=== PATIENT | female | born 1970 | race American Indian/Alaskan Native ===

== ENCOUNTER 2017-05-28 09:24 | Emergency (ER) | payer MEDICARE ==
[2017-05-28 09:24] VITALS: BMI 30.9
[2017-05-28 10:04] VITALS: BP 117/77; PULSE 82; RESP 18; TEMP 97; O2SAT 100
--- NOTE | 2017-05-28 10:26 | ED PDOC ---
HPI: Chest Pain Time Seen by Provider: 05/28/17 09:58 Chief Complaint (Nursing): Chest Pain Chief Complaint (Provider): mid sternal pain History Per: Patient History/Exam Limitations: no limitations Onset/Duration Of Symptoms: Days (x 3) Exacerbating Factors: Movement, Deep Breathing Additional Complaint(s): Kinga Haas is a 47 year old female, with a previou smedical history of arthritis, who presents to the ED with complaints of mid-sternal chest pain which radiates to her back constantly ongoing for 3 days. Patient reports pain is worse with deep breaths and movement. She denies any fever, coughing, travel or recent surgeries. She reports intermittent episodes of left leg swelling which has been ongoing for a while. PMD: none provided Past Medical History Reviewed: Historical Data, Nursing Documentation, Vital Signs Vital Signs: Last Vital Signs Temp 97 F L 05/28/17 09:52 Pulse 82 05/28/17 09:52 Resp 18 05/28/17 09:52 BP 117/77 05/28/17 09:52 Pulse Ox 100 05/31/17 12:34 - Medical History PMH: Anemia, Arthritis Denies: Depression, Chronic Kidney Disease - Family History Family History: States: Unknown Family Hx - Social History Current smoker - smoking cessation education provided: No Alcohol: Social - Home Medications Home Medications: Ambulatory Orders Medication Instructions Recorded Linaclotide [Linzess] 290 mcg PO BID 01/13/15 Gabapentin [Neurontin] 100 mg PO TID 02/18/15 Iron [Slow Fe] 3 tab PO QPM 02/18/15 Acetaminophen/Butalbital/Caf 1 tab PO Q6 PRN #0 tab 02/22/15 [Fioricet] Cholecalciferol [Vitamin D] 1,000 iu PO DAILY 04/21/15 Cyanocobalamin [Vitamin B12 1000 1 tab PO DAILY 04/21/15 mcg Tab] Famotidine [Pepcid] 20 mg PO DAILY 04/21/15 Levocetirizine Dihydrochlori 5 mg PO QPM 04/21/15 [Xyzal] Sennosides [Senna] 2 tab PO HS 04/21/15 Fluocinonide 0.05% Cream [Lidex 1 % TOP QID 04/23/15 0.05% Cream] Naproxen [Naprosyn Tab] 250 mg PO BID PRN #20 tab 05/28/17 Omeprazole 20 mg PO DAILY #10 capsule. 05/28/17 - Allergies Allergies/Adverse Reactions: Allergies Allergy/AdvReac Type Severity Reaction Status Date / Time penicillin G Allergy RASH Verified 09/11/16 07:07 CHINO Risk Score for UA/NSTEMI - CHINO Risk Score Age > 64: NO 3 or more CAD Risk Factors: NO Known CAD (Stenosis greater than 50%): NO Aspirin use in past 7 days: NO Severe Angina: NO EKG ST changes greater than 0.5mm: NO Positive Cardiac Marker: NO CHINO Score: 0 Risk %: 5% Wells Criteria for PE - Wells Criteria for Pulmonary Embolism Clinical Signs and Symptoms of DVT: No P.E is #1 Diagnosis, or Equally Likely: No Heart Rate >100: No Immobilization at least 3 days;Surgery previous 4 weeks: No Previous, objectively diagnosed PE or DVT: No Hemoptysis: No Malignancy w/treatment within 6 months, or palliative: No Total Score: 0 Review of Systems ROS Statement: Except As Marked, All Systems Reviewed And Found Negative Constitutional: Negative for: Fever, Chills Cardiovascular: Positive for: Chest Pain Respiratory: Negative for: Cough, Shortness of Breath Musculoskeletal: Positive for: Back Pain Physical Exam - Reviewed Nursing Documentation Reviewed: Yes Vital Signs Reviewed: Yes - Physical Exam Appears: Positive for: Well, Non-toxic, No Acute Distress Head Exam: Positive for: ATRAUMATIC, NORMAL INSPECTION, NORMOCEPHALIC Skin: Positive for: Normal Color, Warm, DRY Eye Exam: Positive for: EOMI, Normal appearance, PERRL ENT: Positive for: Normal ENT Inspection Neck: Positive for: Normal, Painless ROM Cardiovascular/Chest: Positive for: Regular Rate, Rhythm Respiratory: Positive for: CNT, Normal Breath Sounds Gastrointestinal/Abdominal: Positive for: Normal Exam, Bowel Sounds, Soft Back: Positive for: Normal Inspection Extremity: Positive for: Normal ROM Neurologic/Psych: Positive for: Alert, Oriented - Laboratory Results Result Diagrams: 05/28/17 10:33 05/28/17 10:33 - ECG O2 Sat by Pulse Oximetry: 100 (RA) Pulse Ox Interpretation: Normal - Physician Consult Information Time Consulting Physican Contacted: 15:55 Physician Contacted: Nancy Corrales Outcome Of Conversation: Case discussed, agrees with discharge home, recommends Rx Naprosyn 250 mg and Omeprazole. Medical Decision Making Medical Decision Making: Initial Plan: * EKG * labs * Troponin I * urine * urine dipstick * D-dimer * PTT * PT * CXR * US duplex lower extremity * reevaluation Scribe Attestation: Documented by Susie Santamaria, acting as a scribe for Susie Bravo MD. Provider Scribe Attestation: All medical record entries made by the Scribe were at my direction and personally dictated by me. I have reviewed the chart and agree that the record accurately reflects my personal performance of the history, physical exam, medical decision making, and the department course for this patient. I have also personally directed, reviewed, and agree with the discharge instructions and disposition. Disposition - Clinical Impression Clinical Impression: Atypical chest pain - Patient ED Disposition Is Patient to be Admitted: No - Disposition Referrals: Nancy Corrales MD [Family Provider] - Disposition: Routine/Home Disposition Time: 15:56 Condition: STABLE Prescriptions: Naproxen [Naprosyn Tab] 250 mg PO BID PRN #20 tab PRN Reason: Pain Omeprazole 20 mg PO DAILY #10 capsule.dr Instructions: Chest Pain (ED), Costochondritis (ED)
--- NOTE | 2017-05-28 10:38 | RAD ---
HISTORY: CP COMPARISON: Comparison chest 09/11/2016 FINDINGS: LUNGS: Poor inspiration with low lung volumes, mild crowded bronchovascular markings and mild bibasilar atelectasis PLEURA: No significant pleural effusion identified, no pneumothorax apparent. CARDIOVASCULAR: Normal. OSSEOUS STRUCTURES: No significant abnormalities. VISUALIZED UPPER ABDOMEN: Normal. OTHER FINDINGS: None. IMPRESSION: Poor inspiration with low lung volumes, mild crowded bronchovascular markings and mild bibasilar atelectasis
[2017-05-28 10:41] LABS: BASO % 0.4 % (0.0-2.0); EOS % 0.9 % (0.0-4.0); HEMOGLOBIN 12.4 g/dL (12.0-16.0); LYMPH # 1.1 K/uL (1.0-4.3); LYMPH % 21.6 % (20.0-40.0); MEAN CELL VOLUME 90.9 fl (81.0-99.0); MEAN CORPUSCULAR HEMOGLOBIN 29.9 pg (27.0-31.0); MEAN CORPUSCULAR HGB CONC 32.9 g/dL (33.0-37.0); MEAN PLATELET VOLUME 10.5 fl (7.2-11.7); MONO # 0.3 K/uL (0.0-0.8); MONO % 6.9 % (0.0-10.0); NEUT # 3.5 K/uL (1.8-7.0); NEUT % 70.2 % (50.0-75.0); NRBC % 0.1 % (0.0-0.0); RBC 4.13 Mil/uL (3.80-5.20); RED CELL DISTRIBUTION WIDTH 14.5 % (11.5-14.5)
[2017-05-28 10:57] LABS: ALB/GLOB RATIO 1.4 (1.0-2.1); ALBUMIN 4.2 g/dL (3.5-5.0); ALT/SGPT 25 U/L (9-52); AST/SGOT 23 U/L (14-36); BLOOD UREA NITROGEN 9 mg/dl (7-17); CALCIUM 9.2 mg/dL (8.4-10.2); GFR AFRICAN-AMERICAN > 60; GFR NON-AFRICAN AMERICAN > 60
--- NOTE | 2017-05-28 11:03 | US ---
PROCEDURE: Bilateral lower extremity venous duplex Doppler. HISTORY: L leg swelling COMPARISON: None available. TECHNIQUE: Bilateral common femoral, superficial femoral, popliteal and posterior tibial veins were evaluated. Flow was assessed with color Doppler, compressibility, assessment of phasic flow and augmentation response. FINDINGS: COMMON FEMORAL VEIN: Right CFV: Unremarkable. Left CFV: Unremarkable. SUPERFICIAL FEMORAL VEIN: Right SFV: Unremarkable. Left SFV: Unremarkable. POPLITEAL VEIN: Right Popliteal: Unremarkable. Left Popliteal: Unremarkable. POSTERIOR TIBIAL VEIN: Right PTV: Unremarkable. Left PTV: Unremarkable. OTHER FINDINGS: None. IMPRESSION: No evidence of deep venous thrombosis.
[2017-05-28 12:24] LABS: PARTIAL THROMBOPLASTIN TIME 35.4 Seconds (25.6-37.1); PROTHROMBIN TIME 11.3 Seconds (9.8-13.1)
[2017-05-28] MEDS ORDERED: Iodixanol 320 MG/ML 100 ML BOTTLE IV ONE (13:18)
[2017-05-28] MEDS ORDERED: Sodium Chloride 0.9% 50 ML IV ONE (13:18)
--- NOTE | 2017-05-28 15:26 | CT ---
PROCEDURE: CT Chest with contrast (Pulmonary Angiogram) HISTORY: Pleuritic CP COMPARISON: None available. TECHNIQUE: Axial computed tomography images were obtained of the chest in the pulmonary arterial phase of enhancement. Coronal and sagittal reformatted images were created and reviewed. Intravenous contrast dose: 99 cc Visipaque contrast Radiation dose: Total exam DLP = 412.43 mGy-cm. This CT exam was performed using one or more of the following dose reduction techniques: Automated exposure control, adjustment of the mA and/or kV according to patient size, and/or use of iterative reconstruction technique. This examination is limited to evaluate pulmonary artery due to suboptimal injection and significant streak and beam hardening artifact arising from the upper extremities which have not been moved from the field of view FINDINGS: PULMONARY ARTERIES: The pulmonary vasculature is poorly seen due to aforementioned technical factors. No gross filling defects seen within the pulmonary trunk, right and left main or lobar branches. The segmental and subsegmental branches of the pulmonary arteries poorly delineated. The possibility of a small peripheral pulmonary embolus cannot be completely excluded. Pulmonary trunk measures approximately 2.4 cm. AORTA: Ascending thoracic aorta measures approximately 3.1 cm and descending thoracic aorta measures approximately 1.9 cm. No evidence of aortic dissection. LUNGS: Mild atelectatic changes seen within both posterior lower lung fuller. PLEURAL SPACES: Unremarkable. No effusion or pneumothorax HEART: Heart size is within range of normal. No significant pericardial effusion. Ascending thoracic aorta measures approximately 3.1 cm. Descending thoracic aorta measures approximately 1.9 cm. Pulmonary trunk measures approximately 2.34 cm. LYMPH NODES: No significant mediastinal or hilar adenopathy. BONES, CHEST WALL: Minor multilevel degenerative spondylosis of the thoracic spine. There are no acute compression fractures no retropulsed fragments. Vertebral bodies exhibit relatively normal stature. OTHER FINDINGS: Central airways are midline and patent. No endobronchial lesions. Small hiatal hernia. Visualized upper abdominal structures unremarkable. IMPRESSION: Limited study as described. No evidence of large central pulmonary embolus however due to technical limitations, the possibility of a small peripheral pulmonary embolus cannot be excluded as above. Bibasilar atelectasis.
--- NOTE | 2017-05-28 22:44 | CARD ---
APPROVED REPORT EKG Measurement Heart [id number] <Conclusion> Normal sinus rhythm Normal ECG
== END 2017-05-28 16:21 | disposition home or self-care (01) ==
LOC: H.ER 09:24
DX: R60.0 Localized edema (principal); Z88.0 Allergy status to penicillin; D64.9 Anemia, unspecified
CPT/HCPCS: 71010; 71275; 80053; 81025; 84484; 85025; 85378; 85610; 85730; 93005; 93970; 99283; Q9967

== ENCOUNTER 2018-09-23 09:31 | Day surgery (SDC) | payer MEDICARE ==
[2018-09-23 10:51] VITALS: BMI 32.1
[2018-09-23] MEDS ORDERED: Lactated Ringer's 500 ML IV ONE (10:59)
[2018-09-23] MEDS ORDERED: Propofol 10 mg/ml Inj (20 ML) ONE ×3 (11:37→12:23)
[2018-09-23 12:37] VITALS: RESP 18
[2018-09-23 13:01] VITALS: PULSE 61; TEMP 96; O2SAT 100
[2018-09-23 13:02] VITALS: BP 114/70
== END 2018-09-23 13:02 | disposition home or self-care (01) ==
LOC: H.ENDO 09:31
PROVIDERS: ATTEND Internal Medicine Gastroenterology
DX: R10.84 Generalized abdominal pain (principal); K64.8 Other hemorrhoids; R93.3 Abnormal findings on diagnostic imaging of other parts of digestive tract; K21.9 Gastro-esophageal reflux disease without esophagitis
CPT/HCPCS: 45380; 88305; J2001; J2704; J7120